=== PATIENT | male | born 1970 | race Caucasian/White ===

== ENCOUNTER 2017-06-21 21:09 | Emergency (ER) | payer MEDICAID ==
[~2017-06-21] VITALS: Ht 177.8 cm; Wt 76.0 kg
[~2017-06-21 21:09] MED LIST: BACT800T5 PO; HYDR-3533 PO
[2017-06-21 21:14] VITALS: BP 157/101; PULSE 68; RESP 16; TEMP 97.5; O2SAT 98
--- NOTE | 2017-06-21 21:24 | PD ---
Physical Exam Date Seen by Provider: Jun 21, 2017 Time Seen by Provider: 21:21 Narrative 47-year-old male presents with sudden onset of excruciating right upper quadrant pain. Patient says the several episodes of vomiting associated with it. Patient states the pain started approximately 30-40 minutes prior to arrival. Patient had cold sweats feels like he is needing urinate but He just recently did. Pain is currently a 10 out of 10. Patient denies recent fever or chills. Patient states she has had 2 days of diarrhea. No previous abdominal surgeries. Patient last ate around lunchtime. Patient states he had 3 beers between lunchtime and the time when the pain started. He has no known drug allergies. Vital signs are reviewed. Patient is awaiting med bed placement. Data Data Last Documented VS Vital Signs Date Time Temp Pulse Resp B/P (MAP) Pulse Ox O2 Delivery O2 Flow Rate FiO2 06/21/17 21:14 97.5 68 16 157/101 (119) 98 Room Air [facility] Medical Record Reviewed: Yes Supervised Visit with SHEILA: Yes Condition: Stable Arnav Carter Jun 21, 2017 21:24
--- NOTE | 2017-06-21 21:38 | PD ---
HPI Chief Complaint: Abdominal Pain Time Seen by Provider: 21:28 Travel History International Travel<30 days: No Contact w/Intl Traveler<30days: No Traveled to known affect area: No History of Present Illness HPI 47yo M with no significant PMH presents to the ED wit c/o right sided abdominal pain that started about an hour prior to arrival. Pain is sharp, nonradiating. No alleviating or exacerbating factors. Associated with nausea and NBNB vomiting. Denies any fever, chest pain, sob, testicular pain, penile rash or discharge. Had some diarrhea for a few days prior to this. Never had anything similar. Denies chronic alcohol use but drank 2 beers with dinner today. Denies previous abdominal surgeries or kidney stones. Did not take anything for pain. PFSH Past Medical History Medical History: Denies Significant Hx Hx Anticoagulant Therapy: No Cardiovascular Problems: No Chemotherapy: No Cerebrovascular Accident: No Diabetes: No Respiratory: No Tetanus Vaccination: < 5 Years Past Surgical History Other Surgery: Yes (L KNEE AND L WRIST. ) Social History Alcohol Use: Yes (2-3 drinks every other day) Tobacco Use: Yes (1/2 PACK A DAY) Substance Use: No Allergies-Medications (Allergen,Severity, Reaction): Coded Allergies: No Known Allergies (Unverified , 06/21/17) Reported Meds & Prescriptions Reported Meds & Active Scripts Active No Active Prescriptions or Reported Medications Review of Systems Except as stated in HPI: all other systems reviewed are Neg Physical Exam Narrative GENERAL: 47yo M in moderate distress. SKIN: Focused skin assessment warm/dry. HEAD: Atraumatic. Normocephalic. EYES: Pupils equal and round. No scleral icterus. No injection or drainage. ENT: No nasal bleeding or discharge. Mucous membranes pink and moist. NECK: Trachea midline. No JVD. CARDIOVASCULAR: Regular rate and rhythm. No murmur appreciated. RESPIRATORY: No accessory muscle use. Clear to auscultation. Breath sounds equal bilaterally. GASTROINTESTINAL: Abdomen soft, +TTP RUQ > RLQ. +TTP right flank. No rebound tenderness or guarding. MUSCULOSKELETAL: No obvious deformities. No clubbing. No cyanosis. No edema. NEUROLOGICAL: Awake and alert. No obvious cranial nerve deficits. Motor grossly within normal limits. Normal speech. PSYCHIATRIC: Appropriate mood and affect; insight and judgment normal. Data Data Last Documented VS Vital Signs Date Time Temp Pulse Resp B/P (MAP) Pulse Ox O2 Delivery O2 Flow Rate FiO2 06/21/17 21:14 97.5 68 16 157/101 (119) 98 Room Air Orders Orders Complete Blood Count With Diff (06/21/17 21:32) Comprehensive Metabolic Panel (06/21/17 21:32) Lipase (06/21/17 21:32) Prothrombin Time / Inr (Pt) (06/21/17 21:32) Act Partial Throm Time (Ptt) (06/21/17 21:32) Urinalysis - C+S If Indicated (06/21/17 21:32) Ct Abd/Pel W Iv Contrast(Rout) (06/21/17 21:32) Iv Access Insert/Monitor (06/21/17 21:32) Ecg Monitoring (06/21/17 21:32) Oximetry (06/21/17 21:32) Morphine Inj (Morphine Inj) (06/21/17 21:45) Ondansetron Inj (Zofran Inj) (06/21/17 21:45) Sodium Chloride 0.9% Flush (Ns Flush) (06/21/17 21:45) Iohexol 350 Inj (Omnipaque 350 Inj) (06/21/17 22:17) Morphine Inj (Morphine Inj) (06/21/17 23:00) Metoclopramide Inj (Reglan Inj) (06/21/17 23:00) Morphine Inj (Morphine Inj) (06/21/17 23:30) Tamsulosin (Flomax) (06/21/17 23:30) Labs Laboratory Tests Test 06/21/17 21:45 06/21/17 21:50 White Blood Count 9.3 TH/MM3 Red Blood Count 4.82 MIL/MM3 Hemoglobin 16.4 GM/DL Hematocrit 49.2 % Mean Corpuscular Volume 102.2 FL Mean Corpuscular Hemoglobin 34.0 PG Mean Corpuscular Hemoglobin Concent 33.3 % Red Cell Distribution Width 13.1 % Platelet Count 223 TH/MM3 Mean Platelet Volume 9.2 FL Neutrophils (%) (Auto) 78.0 % Lymphocytes (%) (Auto) 13.5 % Monocytes (%) (Auto) 7.2 % Eosinophils (%) (Auto) 0.4 % Basophils (%) (Auto) 0.9 % Neutrophils # (Auto) 7.3 TH/MM3 Lymphocytes # (Auto) 1.3 TH/MM3 Monocytes # (Auto) 0.7 TH/MM3 Eosinophils # (Auto) 0.0 TH/MM3 Basophils # (Auto) 0.1 TH/MM3 CBC Comment DIFF FINAL Differential Comment Prothrombin Time 10.0 SEC Prothromb Time International Ratio 0.9 RATIO Activated Partial Thromboplast Time 26.4 SEC Blood Urea Nitrogen 12 MG/DL Creatinine 1.10 MG/DL Random Glucose 129 MG/DL Total Protein 8.7 GM/DL Albumin 4.0 GM/DL Calcium Level 9.1 MG/DL Alkaline Phosphatase 124 U/L Aspartate Amino Transf (AST/SGOT) 35 U/L Alanine Aminotransferase (ALT/SGPT) 44 U/L Total Bilirubin 0.5 MG/DL Sodium Level 138 MEQ/L Potassium Level 3.6 MEQ/L Chloride Level 104 MEQ/L Carbon Dioxide Level 23.7 MEQ/L Anion Gap 10 MEQ/L Estimat Glomerular Filtration Rate 72 ML/MIN Lipase 306 U/L Urine Color YELLOW Urine Turbidity CLEAR Urine pH 5.5 Urine Specific [place] 1.028 Urine Protein 30 mg/dL Urine Glucose (UA) NEG mg/dL Urine Ketones 10 mg/dL Urine Occult Blood MOD Urine Nitrite NEG Urine Bilirubin NEG Urine Urobilinogen 2.0 MG/DL Urine Leukocyte Esterase NEG Urine RBC 56 /hpf Urine WBC 3 /hpf Urine Mucus FEW /lpf Microscopic Urinalysis Comment CULT NOT INDICATED MDM Medical Decision Making Medical Screen Exam Complete: Yes Emergency Medical Condition: Yes Differential Diagnosis Acute cholecystitis vs. acute pancreatitis vs. nephrolithiasis vs. pyelonephritis Narrative Course 47yo M with right sided flank pain associated with nausea. Labs reviewed, no leukocytosis. Creatinine normal at 1.10. Alk phos mildly elevated at 124. UA showed moderate blood. Culture not indicated. CTa/p showed 2x3x4 mm stone in the distal right ureter with mild obstructive uropathy. Pt given morphine, zofran, reglan and flomax. Pt reevaluated at bedside and pain has improved. Pt is now tolerating PO. Instructed patient to follow up with urology this morning. Instructed pt to return to the ED if pain or vomiting return and medications are not working. Diagnosis Primary Impression: Nephrolithiasis Referrals: Tej Goodson MD 1 day stone in distal right ureter with mild obstructive uropathy. Patient Instructions: General Instructions Departure Forms: Tests/Procedures Additional Instructions: Please follow up with urology clinic today. Return to the ED if symptoms worsen. Med/Other Pt SpecificInfo: Prescription(s) given Scripts Oxycodone-Acetaminophen (Percocet) 5-325 mg Tab 1 TAB PO Q6H Y for PAIN, #10 TAB 0 Refills Prov: Leann Lee DO 06/22/17 Ondansetron Odt (Zofran Odt) 4 Mg Tab 4 MG SL Q12HR Y for Nausea/Vomiting, #10 TAB 0 Refills Prov: Leann Lee DO 06/22/17 Disposition: 01 DISCHARGE HOME Condition: Stable Leann Lee DO Jun 21, 2017 21:37
[2017-06-21] MEDS ORDERED: ONDANSETRON HCL 4 MG/2 ML VIAL IVP ONE (21:45)
[2017-06-21] MEDS ORDERED: MORPHINE SULFATE 4 MG/ML INJ IV PUSH ONE ×2 (21:45→23:00)
[2017-06-21] MEDS ORDERED: SODIUM CHLORIDE 0.9% FLUSH 10 ML FLUSH IV FLUSH PRN (21:45)
[2017-06-21 22:14] LABS: BLOOD, URINE MOD (NEG); COMMENT (UR) CULT NOT INDICATED; CULTURE IF INDICATED CULT NOT INDICATED; GLUCOSE,URINE NEG (NEG); KETONE, URINE 10 mg/dL (NEG); MUCUS URINE FEW /lpf (OCC); NITRITE,URINE NEG (NEG); PH, URINE 5.5 (5.0-8.5); URINE COLOR YELLOW (YELLW/STRAW)
[2017-06-21 22:15] LABS: AUTOMATED NEUTROPHIL # 7.3 TH/MM3 (1.8-7.7); BASOPHIL # 0.1 TH/MM3 (0-0.2); BASOPHIL % 0.9 % (0.0-2.0); EOSINOPHIL % 0.4 % (0.0-4.0); HEMATOCRIT 49.2 % (39.0-51.0); HEMO FLAGS DIFF FINAL; LYMPH % 13.5 % (9.0-44.0); LYMPHOCYTE # 1.3 TH/MM3 (1.0-4.8); MEAN CELL VOLUME 102.2 FL (80.0-100.0); MEAN CORPUSCULAR HGB CONC 33.3 % (32.0-36.0); MONO % 7.2 % (0.0-8.0); PLATELET COUNT 223 TH/MM3 (150-450); RED BLOOD COUNT 4.82 MIL/MM3 (4.50-5.90); RED CELL DISTRIBUTION WIDTH 13.1 % (11.6-17.2); WHITE BLOOD COUNT 9.3 TH/MM3 (4.0-11.0)
[2017-06-21] MEDS ORDERED: IOHEXOL 350 MG/ML 10 ML VIAL (for RAD DIAG) IVCONTRAST ONE (22:17)
[2017-06-21 22:22] LABS: APTT (PATIENT) 26.4 SEC (24.3-30.1); INTERNATIONAL NORMALIZED RATIO 0.9 RATIO
[2017-06-21 22:26] LABS: ALKALINE PHOSPHATASE 124 U/L (45-117); ALT (GPT) 44 U/L (12-78); ANION GAP 10 MEQ/L (5-15); AST (GOT) 35 U/L (15-37); BICARBONATE 23.7 MEQ/L (21.0-32.0); BLOOD UREA NITROGEN 12 MG/DL (7-18); CHLORIDE 104 MEQ/L (98-107); GLOMERULAR FILTRATION RATE 72 ML/MIN (>89); POTASSIUM 3.6 MEQ/L (3.5-5.1); SODIUM (NA) 138 MEQ/L (136-145); TOTAL BILIRUBIN ADULT 0.5 MG/DL (0.2-1.0)
--- NOTE | 2017-06-21 22:42 | RADRPT ---
EXAM DATE/TIME: 06/21/2017 22:10 [place] COMPARISON: No previous studies available for comparison. INDICATIONS : Right upper quadrant abdomen pain with nausea, vomiting, and diarrhea. IV CONTRAST: 100 cc Omnipaque 350 (iohexol) IV ORAL CONTRAST: No oral contrast ingested. RADIATION DOSE: 5.05 CTDIvol (mGy) MEDICAL HISTORY : None SURGICAL HISTORY : None. ENCOUNTER: Initial ACUITY: 2 days PAIN SCALE: 8/10 LOCATION: Right upper quadrant abdomen TECHNIQUE: Volumetric scanning of the abdomen and pelvis was performed. Using automated exposure control and ad justment of the mA and/or kV according to patient size, radiation dose was kept as low as reasonably achievable to obtain optimal diagnostic quality images. DICOM format image data is available electro nically for review and comparison. FINDINGS: LOWER LUNGS: The visualized lower lungs are clear. LIVER: Homogeneous density without lesion. There is no dilation of the biliary tree. No calcified gall[place] es. SPLEEN: Normal size without lesion. PANCREAS: Within normal limits. KIDNEYS: 2 x 3 x 4 mm calculus seen of the distal right ureter, approximately 2 cm above the ureterovesical ju nction. There is associated mild hydronephrosis and hydroureter. Several subcutaneous millimeter nono bstructing stones are seen of the left kidney. No left ureteral calculus. ADRENAL GLANDS: Within normal limits. VASCULAR: There is no aortic aneurysm. BOWEL/MESENTERY: The stomach, small bowel, and colon demonstrate no acute abnormality. There is no free intraperitone al air or fluid. ABDOMINAL WALL: Within normal limits. RETROPERITONEUM: There is no lymphadenopathy. BLADDER: No wall thickening or mass. REPRODUCTIVE: Within normal limits. INGUINAL: There is no lymphadenopathy or hernia. MUSCULOSKELETAL: No acute bony abnormality demonstrated. CONCLUSION: 2 x 3 x 4 mm stone in the distal right ureter with mild obstructive uropathy. Tiny nonobstructing sto [place] of the left kidney. Otherwise negative CT of the abdomen and pelvis. Luis Anglin MD on June 21, 2017 at 22:37 Board Certified Radiologist. This report was verified electronically.
[2017-06-21] MEDS ORDERED: METOCLOPRAMIDE INJ 10 MG in SODIUM CHLORIDE 0.9% INJ 50 ML IV ONE (23:00)
[2017-06-21] MEDS ORDERED: MORPHINE SULFATE 8 MG/ML INJ IV PUSH ONE (23:30)
[2017-06-21] MEDS ORDERED: TAMSULOSIN HCL 0.4 MG CAP PO ONE (23:30)
[2017-06-22] MEDS ORDERED: PERC5TAB12 PO (00:16)
[2017-06-22] MEDS ORDERED: ZOFR4TAB3 SL (00:16)
== END 2017-06-22 00:34 | disposition home or self-care (01) ==
LOC: NEPC 21:09
DX: N20.1 Calculus of ureter (principal); N13.9 Obstructive and reflux uropathy, unspecified; F17.200 Nicotine dependence, unspecified, uncomplicated
CPT/HCPCS: 74177; 80053; 81001; 83690; 85025; 85610; 85730; 96365; 96375; 96376; 99285; J2270; J2405; J2765; Q9967